=== PATIENT | male | born 1975 | race Caucasian/White ===

== ENCOUNTER 2021-01-29 13:41 | Outpatient (RCR) | payer OTHER, SELFPAY | END 2021-04-13 23:59 | LOC: IMMUN 13:41 | PROVIDERS: Visit Provider Family Medicine | DX: Z23 Encounter for immunization (principal) | CPT/HCPCS: 0001A; 0002A; 91300 ==

== ENCOUNTER 2021-07-22 08:58 | Day surgery (SDC) | payer OTHER, SELFPAY ==
--- NOTE | 2021-07-21 23:27 | HP.PCM_ITS ---
History and Physical Date of Admission: 07/22/21 HISTORY OF PRESENT ILLNESS 45 year old male presents for evaluation of hidradenitis in his left inguinal/medial thigh area. He has been seeing dermatology for over a year about this issue and has had the area lanced and drained, and has had steroid injections. He is currently on Doxycycline for the hidradenitis. He has persistent pain in the area. He denies fever. He presents today for further evaluation and treatment. PAST MEDICAL HISTORY Hidradenitis suppurativa PAST SURGICAL HISTORY No pertinent past surgical history ALLERGIES No Known Allergies MEDICATIONS minocycline FAMILY HISTORY Other - Alcoholism, Breast cancer SOCIAL HISTORY Smoking Status: Never smoker alcohol intake: never substance use type: does not use REVIEW OF SYSTEMS General - Denies fever, fatigue, and weight loss. Eyes - Denies cataracts and glaucoma. ENT - Denies nasal congestion and sore throat. Endocrine - Denies excessive thirst and urination. Skin - Denies suspicious lesions and skin cancer. History of recurrent hidradenitis suppurativa of the left inguinal/thigh area. Musculoskeletal - History joint pain, joint stiffness, weakness of muscles and joints, back pain. Neuro - Denies headaches. Cardiovascular - Denies chest pain, fatigue, and shortness of breath with exertion. Psych - Denies anxiety and depression. Respiratory - Denies chronic cough and shortness of breath. Gastrointestinal - Denies nausea, vomiting, diarrhea, and constipation. Hematologic - Denies abnormal bruising and bleeding. Genitourinary - Denies hematuria and urinary frequency. PHYSICAL EXAMINATION General - Alert and oriented. HEENT - PERRL. EOMI. Throat is clear. Neck - Supple and non-tender. No cervical adenopathy. Lungs- Clear to auscultation. Heart - Regular rate and rhythm. Abdomen - Soft and non distended. Extremities - FROM. No axillary adenopathy. Radial pulses are palpable. No inguinal adenopathy. Dorsalis pedis pulses are palpable. In the left inguinal/medial thigh area is some hidradenitis. There is discoloration where the hidradenitis is located. Slightly raised in configuration. Has irregular borders. Measures 2 x 1.5 cm. Tender to palpation. No clinical evidence of active infection at this time. Neuro - CN II-XII grossly intact. Psych - Normal mood and affect. ASSESSMENT Recurrent hidradenitis left inguinal/medial thigh area. PLAN Patient has a small area of recurrent hidradenitis left inguinal/medial thigh area. Recommend operative intervention and excise the hidradenitis. Will send the tissue to Pathology for analysis to rule out carcinoma and to Microbiology for culture. A positive culture will necessitate antibiotic therapy. The wound will be left open and postoperative wound care started with Dakin's dressing changes. Surgery will be done under general anesthesia. Normally I have the patient stay the night and have the VAC applied the next day. Since this is a small area of excision, the patient may be able to go home as an outpatient. Initially after discharge, will proceed with daily Dakin's dressing changes. Can always apply for the VAC as an outpatient at the Wound Center. If the patient does spend the night in the hospital, then the VAC will be applied the next day and approved before discharge. At the wound center, if there is a plateau in the healing process, can proceed with delayed closure with skin grafting of local skin flap reconstruction. Preoperatively he should continue his Minocycline. Patient was informed of the risks and complications of the procedure including alternatives to surgery. These were discussed with the patient personally. Patient voices understanding and wishes to proceed. Some of the risks and complications were included in a form from the [employer]. We discussed the current risks associated with COVID-19. While it is understood that there is a community spread of COVID-19, the risk of risa COVID-19 while at [facility] ([facility]) is very low; however, the risk cannot be completely mitigated because of the community spread of the disease. We discussed in detail the risk of exposure to and/or potential harm posed by the COVID-19 virus with having a surgery/procedure at this time versus the risk of delaying the surgery/procedure. It is not possible to know either the risk of delaying the surgery or procedure or chance of getting an infection with perfect accuracy, but a joint decision was made to proceed at this time with the scheduled surgery/procedure as indicated on the consent form. Patient was notified that we will need to comply with any screening or testing [facility] wishes to perform or that surgery may be delayed for any positive results. Procedure Criteria Procedure Type:?Elective COVID Risk Discussion: The surgeon/proceduralist and patient have discussed in detail the risk of exposure to and/or potential harm posed by the COVID-19 virus with having a surgery/procedure at this time versus the risk of delaying the surgery/procedure.? It is not possible to know either the risk of delaying the surgery or procedure or chance of getting an infection with perfect accuracy, but a joint decision was made between the patient and the surgeon/proceduralist to proceed at this time with the scheduled surgery/procedure as indicated on the consent form.
[2021-07-22 09:32] VITALS: BP 146/97; PULSE 95; RESP 16; TEMP 36.2; O2SAT 100; BMI 29.0
[2021-07-22] MEDS: Lactated Ringers 1,000 ML 100 ML IV (09:47)
[2021-07-22] MEDS: Cefazolin 2 GM in 0.9% Normal Saline 100 ML IV (10:45)
--- NOTE | 2021-07-22 10:45 | HID_PTH ---
PATIENT: TAMARA MERCADO LOC: [facility] [place] U#:[id number] AGE/SX: 45/M ROOM: RE07/22/[address]: Dr. Kodi Mcleod MD : [id number] BED: DIS: 07/22/2021 SPEC #: [id number] RECD: 07/22/21 15:30 STATUS: DYLON AUSTIN #: [id number] REY: 07/22/21 10:[address]: Kodi Mcleod DEPT: SURGICAL PATHOLOGY RECD BY: Ellen Mcallister Tissues: Inguinal region, NOS Procedures: Surgery Specimen Level III HEADER OPERATION: Surgical preparation left inguinal/medial thigh area PRE-OP DIAGNOSIS: Recurrent hidradenitis left inguinal/medial thigh area TISSUE SUBMITTED: Hidradenitis left inguinal/medial thigh area, stitch at 12 o?clock MICROSCOPIC DIAGNOSIS Skin and soft tissue of medial thigh region, excision: Consistent with hidradenitis. AM:mitchell 07/26/2021 MICROSCOPIC DESCRIPTION Slides are reviewed. GROSS DESCRIPTION Received in fixative is one container labeled with the patient's name and designated hidradenitis left inguinal area. The specimen consists of a discoid fragment of robledo skin with attached fragment of tissue measuring 3 x 3 cm and a depth of excision measuring 1 cm. A suture is present at the 12 o?clock position. This margin is inked. Serial sections reveal a dark robledo subcutaneous lesion measuring 1 cm in greatest dimension. Channel Rebuilder sections of the lesion are submitted in two cassettes. / AM:mitchell 07/23/21 TC:2 CPT: 37855
[2021-07-22] MEDS: Lidocaine 1% /Epi 1:100 (20ml) 20 ML Vial (11:04)
--- NOTE | 2021-07-22 11:21 | OP.PCM_ITS ---
Report of Operation Date of Procedure: 07/22/21 Pre-Operative Diagnosis: Recurrent hidradenitis left inguinal and medial thigh area. Post-Operative Diagnosis: Same. Surgery/Procedure Performed:: Surgical preparation left inguinal and medial thigh area with excision recurrent hidradenitis (20 cm2). Description of Surgical Findings:: 45 year old male presents for evaluation of hidradenitis in his left inguinal/medial thigh area. He has been seeing dermatology for over a year about this issue and has had the area lanced and drained, and has had steroid injections. He is currently on Doxycycline for the hidradenitis. He has persistent pain in the area. He denies fever. Surgeon: Kodi Mcleod devulcanizer charger: None Type of Anesthesia: General Specimen's removed: Left inguinal and medial thigh hidradenitis to Pathology and Microbiology. Drains: none. Estimated Blood Loss (mL): 10. Grafts/Implants Used: None. Complications None. Admit VTE Documentation VTE Present on Admission: No VTE Mechan Device Prophylaxis: SCD's VTE Pharm Prophylaxis ordered?: No
--- NOTE | 2021-07-22 11:26 | PCM.DC ---
Discharge Instructions Diet Discharge Diet: No restrictions Activity Discharge Activity: May Not Drive (when taking narcotics for pain.) and May Shower (in two days. After the shower, proceed with Silver daily dressing changes.) May shower in (days): 2 May resume sexual activity in: No Restrictions Weight Bearing Status: Weight bearing as tolerated Dressing / Incision Call your doctor if your incision/area has: Continuous Slow Oozing, Sudden Increased Bleeding, Increased Pain/ Swelling, Increased Redness, Foul Smelling Discharge and Swelling at the incision site Call your doctor if you observe: Fever of 101 or Higher, Coldness, Increased Pain, Shortness of breath, Chest pain, Calf discomfort and Uncontrolled pain Suture Line Care: - (After operative dressing removed in the office, begin daily Silver dressing changes.) Change Dressing in: 1 day (will change operative dressing tomorrow 07/23/21.) Cleanse incision/area with: - (may shower in two days. then redress the wound with Silver dressing change.) Follow Up Care Please Follow Up With: Kodi Mcleod MD When: tomorrow 07/23/21. call [phone] for appt. Test Results: Test results from this visit will be discussed in further detail at your follow-up appointment, if applicable. Discharge Plan Admission Primary Reason for Your Visit: recurrent hidradenitis left inguinal/medial thigh area. Attending Provider: Kodi Mcleod Discharge Orders/Prescriptions Prescriptions: New doxycycline hyclate 100 mg capsule 100 mg PO BID 15 Days Qty: 30 RF: 2 oxycodone-acetaminophen [Percocet] 5-325 mg tablet 1 tab PO Q4H PRN (Reason: pain (scale score 7-10)) 7 Days Qty: 40 RF: 0 diazepam [Valium] 5 mg tablet 5 mg PO TID PRN (Reason: spasms) Qty: 20 RF: 0 Held minocycline 50 mg tablet 50 mg PO DAILY RF: 0 Hold Instructions: Resume on 08/06/21. Referrals / Follow Up: MARSHA KAHN [Other] Disposition Disposition (needs filled in before D/C Order can be placed): Home, Self Care
[2021-07-22 11:31] VITALS: BP 146/97; BP 152/85; PULSE 95; RESP 16; TEMP 36.3; O2SAT 100
[2021-07-22 11:45] VITALS: BP 144/87; BP 146/97; PULSE 93; RESP 16; O2SAT 100
[2021-07-22 12:00] VITALS: BP 134/90; BP 146/97; PULSE 94; RESP 16; O2SAT 100
[2021-07-22 12:18] VITALS: BP 139/89; BP 146/97; PULSE 93; RESP 16; TEMP 36.3; O2SAT 99
[2021-07-22 12:50] VITALS: BP 146/97
== END 2021-07-22 13:08 | disposition home or self-care (01) ==
LOC: SDC 09:01 → AC 09:03
PROVIDERS: Visit Provider Surgery
PROC: (CPT 11462; principal; 2021-07-22 10:30)
DX: L73.2 Hidradenitis suppurativa (principal)
CPT/HCPCS: 00400; 11462; 87070; 87075; 87077; 87102; 87176; 87186; 87205; 87206; 88304; 88305; J7120; J2405